=== PATIENT | male | born 1985 | race Caucasian/White ===

== ENCOUNTER → 2016-04-25 | Outpatient (CLI) | payer OTHER ==
[2016-04-25 07:39] LABS: ALBUMIN 4.1 g/dL (3.4-5.0); ALBUMIN/GLOBULIN RATIO 1.2 (1.0-1.7); CALCIUM 9.2 mg/dL (8.5-10.1); GFR 87.2; POTASSIUM 4.5 mmol/L (3.5-5.1); TOTAL BILIRUBIN 0.5 mg/dL (0.2-1.0); TOTAL PROTEIN 7.4 g/dL (6.4-8.2)
[2016-04-25 07:43] LABS: CHOLESTEROL/HDL RATIO 6.1
== END | disposition home or self-care (01) ==
LOC: LAB 06:54
DX: E78.4 Other hyperlipidemia (principal)
CPT/HCPCS: 36415; 80053; 80061